=== PATIENT | female | born 1975 | race Two or more races ===

== ENCOUNTER 2016-09-02 19:27 | Emergency (ER) | payer MEDICAID ==
[~2016-09-02] VITALS: Ht 162.6 cm; Wt 128.4 kg
[2016-09-02] MEDS ORDERED: Norco 10mg/325mg tab ORAL ONE (21:00)
--- NOTE | 2016-09-02 21:09 | Emergency Room Report ---
History of Present Illness General Chief Complaint: Skin Rash/Abscess Source: Patient Present Illness HPI 31-year-old female presents emergency Department complaining of 10 out of 10 in severity left foot pain with swelling and erythema. Patient states she has a history of diabetic neuropathy and did not realize that she had sustained a small wound on the top of her left foot. Patient states that her daughter told her the wound was there for approximately one week now. Patient reports bilateral foot swelling however more unusual in the left foot with significant tenderness to palpation to the area about the wound. Patient denies fevers or chills. Patient reports erythema of the left foot. Patient denies rapid progression of the open wound. Patient denies fevers or chills. She denies history of recurrent infections. Patient reports history of diabetes and elevated blood pressure. She states she is up-to-date with vaccinations including tetanus. Denies CP, Palpitations, LOC, AMS, dizziness, Changes in Vision, Sensation, paresthesias, or a sudden severe headache. Allergies: Coded Allergies: No Known Allergies (Unverified , 09/02/16) Patient History Past Medical History: see triage record Past Surgical History: none Pertinent Family History: none Last Menstrual Period: 08/06/16 Now: No Immunizations: UTD Reviewed Nursing Documentation: PMH: Agreed, PSxH: Agreed Nursing Documentation-PMH Hx Hypertension: Yes Hx Diabetes: Yes Review of Systems All Other Systems: negative except mentioned in HPI Physical Exam Vital Signs Date Time Temp Pulse Resp B/P Pulse Ox O2 Delivery O2 Flow Rate FiO2 09/02/16 20:20 98.1 138 17 117/83 98 Room Air Sp02 EP Interpretation: reviewed, normal, abnormal - pt. is tachycardic at 138 BPM General Appearance: well appearing, alert, GCS 15, non-toxic, moderate distress - secondary to pain of the left foot. Head: normocephalic, atraumatic Eyes: bilateral eye PERRL, bilateral eye normal inspection ENT: hearing grossly normal, normal pharynx, no angioedema, normal voice Neck: full range of motion, supple/symm/no masses Respiratory: lungs clear, normal breath sounds, speaking full sentences Cardiovascular #1: regular rate, rhythm, no edema, normal capillary refill, tachycardia - 138bpm Gastrointestinal: non tender, soft, no guarding, no rebound Rectal: deferred Genitourinary: normal inspection, no CVA tenderness Musculoskeletal: back normal, gait/station normal, normal range of motion, no calf tenderness, inflammation - left foot , swelling, other - TTP, swelling, and erythema of the left foot, there is no evidence of lymphangitis, moderate pain to light palpation, an open wound noted 1.5cm in size consistent with superficial abrasion with surrounding cellulitis, crusting noted. , tender Neurologic: alert, oriented x3, responsive, motor strength/tone normal, sensory intact, speech normal Psychiatric: judgement/insight normal, memory normal, mood/affect normal, no suicidal/homicidal ideation Skin: no rash, warm/dry, well hydrated, abrasions - TTP, swelling, and erythema of the left foot, there is no evidence of lymphangitis, moderate pain to light palpation, an open wound noted 1.5cm in size consistent with superficial abrasion with surrounding cellulitis, crusting noted. Lymphatic: no adenopathy Medical Decision Making PA Attestation Dr. Logan is my supervising Physician whom patient management has been discussed with. Diagnostic Impression: Primary Impression: Cellulitis and abscess of foot Additional Impression: Diabetic foot infection ER Course 31-year-old female presents emergency Department complaining of 10 out of 10 in severity left foot pain with swelling and erythema. Patient states she has a history of diabetic neuropathy and did not realize that she had sustained a small wound on the top of her left foot. Patient states that her daughter told her the wound was there for approximately one week now. Patient reports bilateral foot swelling however more unusual in the left foot with significant tenderness to palpation to the area about the wound. Patient denies fevers or chills. Patient reports erythema of the left foot. Patient denies rapid progression of the open wound. Patient denies fevers or chills. She denies history of recurrent infections. Patient reports history of diabetes and elevated blood pressure. She states she is up-to-date with vaccinations including tetanus. Ddx considered but are not limited to cellulitis, lymphangitis, osteomyelitis, FB, fracture, d/L, gout Vital signs: are WNL, pt. is afebrile, pt. is moderately tachycardic at 138bpm, non-tachypneic, in moderate distress secondary to pain. H&PE are most consistent with cellulitis in a diabetic foot, possible sepsis. ORDERS: - d/w pt. that it is recommended to do laboratory evaluation and IV abx with admission considered. pt. states she wants to go home, and take oral antibiotics. d/w pt. that elevated HR suggests significant infection, pt. verbalizes her understanding and continues to express interest in oral treatment and d/c. ED INTERVENTIONS: -500mg Keflex PO -800mg Bactrim DS PO -10mg [place] PO - Pt. continues to express her want to be managed as an outpatient. d/w pt. that we encourage her to return at anytime for further infection work up, and to promptly return with worsening or continuation of symptoms. - Discussed this pt. with on-coming physician Dr. Lopez who is knowledgeable of this patients elevated HR, hx of DM, and cellulitis presentation. Pt. will be placed on oral antibiotics and pain medications with instructions for close outpatient follow up. DISCHARGE: At this time pt. is stable for d/c to home. Will provide printed patient care instructions, and any necessary prescriptions. Care plan and follow up instructions have been discussed with the patient prior to discharge. Last Vital Signs Date Time Temp Pulse Resp B/P Pulse Ox O2 Delivery O2 Flow Rate FiO2 09/02/16 20:20 98.1 138 17 117/83 98 Room Air Disposition: HOME, SELF-CARE Condition: Stable Scripts Ibuprofen* (MOTRIN*) 600 Mg Tablet 600 MG ORAL THREE TIMES A DAY, #10 TAB 0 Refills Prov: Cassi Muhammad P.A. 09/02/16 Hydrocodone Bit/Acetaminophen 7.5-325* (NORCO 7.5-325*) 1 Each Tablet 1 TAB ORAL Q6H Y for For Pain, #10 TAB 0 Refills Prov: Cassi Muhammad P.A. 09/02/16 Trimethoprim/Sulfamethoxazole 160/800* (BACTRIM DS TABLET*) 1 Each Tablet 1 TAB ORAL TWICE A DAY for 7 Days, #14 TAB Prov: Cassi Muhammad P.A. 09/02/16 Cephalexin* (KEFLEX*) 500 Mg Capsule 500 MG ORAL EVERY 12 HOURS for 7 Days, #14 CAP 0 Refills Prov: Cassi Muhammad P.A. 09/02/16 Referrals: [facility],REFERRING (PCP) Patient Instructions: Cellulitis Additional Instructions: Take medications as directed. Follow up with PCP within 72 hours ! Return sooner to ED if new symptoms occur, or current symptoms become worse. Do not drink alcohol, drive, or operate heavy machinery while taking [place] as this may cause drowsiness. - Please note that this Emergency Department Report was dictated using [employer] teacher technology software, occasionally this can lead to erroneous entry secondary to interpretation by the dictation equipment. Cassi Muhammad Sep 02, 2016 21:09
[2016-09-02] MEDS ORDERED: Bacitracin Oint UD TOPIC ONE (21:15)
[2016-09-02] MEDS ORDERED: Cephalexin 500mg cap ORAL ONE (21:15)
[2016-09-02] MEDS ORDERED: Bactrim DS (160mg/800mg) tab ORAL ONE (21:15)
[2016-09-02 21:18] VITALS: BP 123/81
[2016-09-02] MEDS ORDERED: IBUPROFEN600 MG ORAL (21:25)
[2016-09-02] MEDS ORDERED: CEPHALEXIN500 MG ORAL (21:25)
[2016-09-02] MEDS ORDERED: BACTRIM DS TAB1 EAC1 ORAL (21:25)
[2016-09-02] MEDS ORDERED: NORCO 7.5-3251 EACH ORAL (21:25)
[2016-09-02 21:32] VITALS: BP 123/81
== END 2016-09-02 21:32 | disposition home or self-care (01) ==
LOC: EMR 20:24
DX: E11.628 Type 2 diabetes mellitus with other skin complications (principal); L03.116 Cellulitis of left lower limb; L02.612 Cutaneous abscess of left foot; E11.40 Type 2 diabetes mellitus with diabetic neuropathy, unspecified; I10 Essential (primary) hypertension
CPT/HCPCS: 99284